=== PATIENT | female | born 1980 | race Caucasian/White ===

== ENCOUNTER 2018-11-23 21:49 | Emergency (ER) | payer SELFPAY ==
[~2018-11-23] VITALS: Ht 170.2 cm; Wt 118.8 kg
[2018-11-23 21:54] VITALS: BP 162/81
--- NOTE | 2018-11-23 21:59 | NUR ---
PT PRESENTED WITH C/O LEFT LOWER JAW DENTAL PAIN, STARTED 2 DAYS AGO. CALL LIGHT WITHIN REACH, ERP AT BEDSIDE FOR EVAL
[2018-11-23] MEDS ORDERED: LEVO75TA5 PO (22:01)
[2018-11-23] MEDS ORDERED: DIURETIC (22:01)
== END 2018-11-23 22:22 | disposition home or self-care (01) ==
LOC: ED 22:15
DX: K02.9 Dental caries, unspecified (principal)
CPT/HCPCS: 99283

== ENCOUNTER 2020-09-18 01:49 | Emergency (ER) | payer SELFPAY ==
[~2020-09-18] VITALS: Ht 170.2 cm; Wt 132.0 kg
[~2020-09-18 01:49] MED LIST: DIURETIC; LEVO75TA5 PO
[2020-09-18 01:52] VITALS: BP 139/91
--- NOTE | 2020-09-18 03:18 | NUR ---
Patient/Caregiver given discharge instructions and they have confirmed that they understand the instructions. Patient ambulatory with steady gait.
== END 2020-09-18 03:20 | disposition home or self-care (01) ==
LOC: ED 01:52
DX: K04.7 Periapical abscess without sinus (principal); K02.9 Dental caries, unspecified; K08.89 Other specified disorders of teeth and supporting structures
CPT/HCPCS: 99283